=== PATIENT | female | born 1950 | race Two or more races ===

== ENCOUNTER 2023-10-16 19:38 | Emergency (ER) | payer OTHER ==
[~2023-10-16] VITALS: Ht 157.5 cm; Wt 90.7 kg
[2023-10-16] MEDS ORDERED: ATORVASTATIN CA10 MG PO (20:20)
[2023-10-16] MEDS ORDERED: CETIRIZINE-PSE1 EACH PO (20:21)
[2023-10-16] MEDS ORDERED: SERTRALINE20 MG/1 ML PO (20:21)
[2023-10-16] MEDS ORDERED: DICLOFENAC SODI75 MG PO (21:29)
[2023-10-16] MEDS ORDERED: ALLERGY RELIEF10 M3 PO (21:31)
== END 2023-10-16 21:34 | disposition home or self-care (01) ==
LOC: ER 19:38
DX: M54.50 Low back pain, unspecified (principal); I10 Essential (primary) hypertension